=== PATIENT | female | born 2000 | race Hispanic/Latino ===

== ENCOUNTER 2018-07-25 16:25 | Emergency (ER) | payer OTHER ==
[~2018-07-25] VITALS: Ht 160 cm; Wt 108.9 kg
[2018-07-25] MEDS ORDERED: KEFLEX500 MG PO (18:11)
== END 2018-07-25 18:20 | disposition home or self-care (01) ==
LOC: ED 16:25
DX: N39.0 Urinary tract infection, site not specified (principal)
CPT/HCPCS: 81001; 87077; 87088; 87186; 99283

== ENCOUNTER 2021-06-24 19:33 | Emergency (ER) | payer OTHER ==
[~2021-06-24] VITALS: Ht 160 cm; Wt 126.0 kg
[~2021-06-24 19:33] MED LIST: KEFLEX500 MG PO
--- OUTSIDE RECORDS SUMMARY | 2021-06-24 19:40 | XMS ---
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 E.DYon VISIT COUNT (12 MO.) 3 [facility] 1 DAVID Rivera TOTAL 4 NOTE: Visits indicate total known visits. ED/C VISIT TRACKING (12 MO.) 06/24/2021 19:34 DAVID Delatorre TYPE: Emergency COMPLAINT: - CRAMPING/5 WKS PREG 04/06/2021 08:57 [facility] Ese [place] TYPE: Emergency DIAGNOSES: - cough - Cough, unspecified - Acute pharyngitis, unspecified - Nasal congestion [facility] DIAGNOSES: - sore throat, feever - Acute pharyngitis, unspecified - Sore Throat 08/26/2020 19:36 [facility] Mary Alice [place] TYPE: Emergency DIAGNOSES: - Flank Pain - Dorsalgia, unspecified - kidney pain INPATIENT VISIT TRACKING (12 MO.) No inpatient visits to display in this time frame [email or web address]
== END 2021-06-24 22:40 | disposition home or self-care (01) ==
LOC: ED 19:33
DX: O26.891 Other specified pregnancy related conditions, first trimester (principal); R10.2 Pelvic and perineal pain; R10.9 Unspecified abdominal pain; Z3A.01 Less than 8 weeks gestation of pregnancy
CPT/HCPCS: 36415; 76801; 76817; 80053; 81001; 84702; 84703; 85025; 86900; 86901; 99284-25

== ENCOUNTER 2021-07-09 19:15 | Emergency (ER) | payer OTHER ==
[~2021-07-09] VITALS: Ht 162.6 cm; Wt 125.0 kg
--- OUTSIDE RECORDS SUMMARY | 2021-07-09 19:23 | XMS ---
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 E.Shirley VISIT COUNT (12 MO.) 3 [facility] Reyna Wheat [address] [place] [address] TOTAL 5 NOTE: Visits indicate total known visits. ED/UCC VISIT TRACKING (12 MO.) 07/09/2021 19:16 DAVID Delatorre TYPE: Emergency COMPLAINT: - 4 WKS COLD SYMPTOMS 06/24/2021 19:34 DAVID Fung [place] TYPE: Emergency COMPLAINT: - CRAMPING/5 WKS PREG DIAGNOSES: - Unspecified abdominal pain - Other specified related conditions, first trimester - Less than 8 weeks gestation of - Pelvic and perineal pain 04/06/2021 08:57 [facility] Reyna [place] TYPE: Emergency DIAGNOSES: - cough - Cough, unspecified - Acute pharyngitis, unspecified - Nasal congestion [facility]2021 [facility] DIAGNOSES: - sore throat, feever - Acute pharyngitis, unspecified - Sore Throat 08/26/2020 19:[facility] DIAGNOSES: - Flank Pain - Dorsalgia, unspecified - kidney pain INPATIENT VISIT TRACKING (12 MO.) No inpatient visits to display in this time frame [email or web address]
[2021-07-09] MEDS ORDERED: ONDANSETRON ODT4 MG PO (21:01)
== END 2021-07-09 21:45 | disposition home or self-care (01) ==
LOC: ED 19:15
DX: O98.511 Other viral diseases complicating pregnancy, first trimester (principal); O21.0 Mild hyperemesis gravidarum; Z3A.01 Less than 8 weeks gestation of pregnancy
CPT/HCPCS: 36415; 80048; 81001; 85025; 96374; 99283-25; A9270; J2405; J7030

== ENCOUNTER 2022-02-20 04:36 | Inpatient (IN) | payer OTHER ==
[~2022-02-20 04:36] MED LIST changes: +METOCLOPRAMIDE H5 MG PO; +ONDANSETRON ODT4 MG PO
--- NOTE | 2022-02-20 09:17 | NUR ---
RT COLLECTED RAPID COVID 19, RSV, AND FLU SWAB PER DR REQUEST USING IN HOUSE LAB WITH NO COMPLICATIONS AT THIS TIME.
--- NOTE | 2022-02-20 13:10 | PR ---
[facility] [address] [facility] [place], [place] [address] Signed Progress Notes IP Datetime Report Generated by CPN: 02/20/2022 13:10 PROGRESS NOTES: [id number] Impression: Normal Progression of Labor; Reassuring Heart Rate Procedures: Sterile Vag Exam Plan: Continue Present Management Informed Consent Obtain: Vaginal Delivery VITAL SIGNS: [id number] Vital Signs: Reviewed; Within Normal Limits EXAM: [id number] Dilatation: 4.0 Effacement: 90 Station: -2 Contractions: q 3-4 min MEMBRANES: [id number] Comments: Pt seen and examined. Doing well. Comfortable w/ contractions. Reviewed anticipated course of labor. Consider AROM and internal monitors w/ possible pitocin augmentation. FETUS A: [id number] FHR Baseline: 125 Variability: Moderate 6-25bpm Accelerations: 15X15 Decelerations: None FHR Category: Category I Presentation: Vertex Comments on Fetus A: No evidence of metabolic acidosis FETUS B: [id number] Signing Physician: Stacy Tenorio DO Copies: ~ *Electronically Signed* 02/20/22 4940 STACY TENORIO (MARIBEL) DO PATIENT NAME: ERNIE PEGUERO PROGRESS NOTE DATE OF : 98 PHYSICIAN: STACY TENORIO) DO RPT #: [id number] REPORT IS CONFIDENTIAL AND NOT TO BE RELEASED WITHOUT AUTHORIZATION
--- NOTE | 2022-02-20 18:01 | PR ---
[facility] [address] [place], [place] [address] Signed Progress Notes IP Datetime Report Generated by CPN: 02/20/2022 18:01 PROGRESS NOTES: [id number] Impression: Normal Progression of Labor; Reassuring Heart Rate Procedures: Artificial ROM; Intrauterine Pressure Catheter; Scalp Electrode; Sterile Vag Exam Plan: Continue Present Management Other Plans: Consider augmentation of labor Informed Consent Obtain: Vaginal Delivery VITAL SIGNS: [id number] Vital Signs: Reviewed; Within Normal Limits EXAM: [id number] Dilatation: 5.5 Effacement: 90 Station: -2 Contractions: q 3-4 min MEMBRANES: [id number] Comments: Pt seen and examined. Doing well. Comfortable w/ contractions. Discussed slow progression, adequate pelvis, and estimated weight. IUPC and FSE placed w/out difficulty. Discussed indications for augmentation if needed. All questions answered FETUS A: [id number] FHR Baseline: 125 Variability: Moderate 6-25bpm Accelerations: 15X15 Decelerations: None FHR Category: Category I Presentation: Vertex Comments on Fetus A: No evidence of metabolic acidosis FETUS B: [id number] Signing Physician: Stacy Tenorio DO Copies: ~ *Electronically Signed* 02/20/22 1804 STACY TENORIO (MARIBEL) DO PATIENT NAME: ERNIE PEGUERO PROGRESS NOTE DATE OF : 98 PHYSICIAN: STACY TENORIO (JD) DO RPT #: [id number] REPORT IS CONFIDENTIAL AND NOT TO BE RELEASED WITHOUT AUTHORIZATION
--- NOTE | 2022-02-20 20:28 | PR ---
[facility] [address] [place], [place] [address] Signed Progress Notes IP Datetime Report Generated by CPN: 02/20/2022 20:28 PROGRESS NOTES: [id number] Impression: Normal Progression of Labor; Reassuring Heart Rate Other Impressions: Slow progression of labor Procedures: Sterile Vag Exam Plan: Continue Present Management Other Plans: Consider augmentation of labor Informed Consent Obtain: Vaginal Delivery; Section Delivery; Risks, Benefits and Alternatives Discussed VITAL SIGNS: [id number] Vital Signs: Reviewed; Within Normal Limits EXAM: [id number] Dilatation: 6.0 Effacement: 90 Station: -2 Contractions: q 3-4 min MEMBRANES: [id number] Comments: Pt seen and evaluated. 6cm per RN. Discussed FHT w/ recurrent late decelerations w/ moderate variabilty and accels. Unable to start pitocin at this time. Discussed causes of decelerations and interventions. Discussed indications for if needed. Reviewed inadequate contractions and slow progression of labor. All questions answered to the best of my ability and to pt and partners satisfaction. Will continue to monitor closely. FETUS A: [id number] FHR Baseline: 125 Variability: Moderate 6-25bpm Accelerations: 15X15 Decelerations: None FHR Category: Category I Presentation: Vertex Comments on Fetus A: No evidence of metabolic acidosis FETUS B: [id number] Signing Physician: Stacy Tenorio DO *Electronically Signed* 02/20/222027 STACY TENORIO (MARIBEL) DO PATIENT NAME: ERNIE PEGUERO PROGRESS NOTE DATE OF : 98 PHYSICIAN: STACY TENORIO (JD) DO RPT #: [id number] REPORT IS CONFIDENTIAL AND NOT TO BE RELEASED WITHOUT AUTHORIZATION
--- NOTE | 2022-02-20 22:52 | PR ---
[facility] [address] [place], [place] [address] Signed Progress Notes IP Datetime Report Generated by CPN: 02/20/2022 22:52 PROGRESS NOTES: [id number] Impression: Arrest of Dilatation/Descent; Non-reassuring Heart Rate Other Impressions: Slow progression of labor Procedures: Sterile Vag Exam Plan: Deliver- Section Other Plans: Consider augmentation of labor Informed Consent Obtain: Section Delivery VITAL SIGNS: [id number] Vital Signs: Reviewed; Within Normal Limits EXAM: [id number] Dilatation: 6.0 Effacement: 90 Station: -2 Contractions: q 3-4 min MEMBRANES: [id number] Comments: Pt seen and examined. Cx unchanged and inadequate contractions noted. PT w/ recurrent late decelerations and have been unable to start pitocin. Reviewed moderate variability and accelerations are still present and we discussed options including continued expectant management, pitocin augmentation, or delivery. Recommended primary delivery, and patient and partner strongly agree with this recommendation. Reviewed risks and benefits, and procedure in detail. All questions answered. Surgical crew and Dr. Johnson (assist) notified. Ancef 3 g IV + Azithromycin 500mg IV. FETUS A: [id number] FHR Baseline: 125 Variability: Moderate 6-25bpm Accelerations: 15X15 Decelerations: None FHR Category: Category I Presentation: Vertex Comments on Fetus A: No evidence of metabolic acidosis FETUS B: [id number] Signing Physician: Stacy Tenorio DO *Electronically Signed* 02/20/22 5390 STACY TENORIO (MARIBEL) DO PATIENT NAME: ERNIE PEGUERO PROGRESS NOTE DATE OF : 98 PHYSICIAN: STACY TENORIO) DO RPT #: [id number] REPORT IS CONFIDENTIAL AND NOT TO BE RELEASED WITHOUT AUTHORIZATION
--- NOTE | 2022-02-21 00:45 | NUR ---
02/21/22 0045 Sheets,Mónica 0021 PT ARRIVED TO PACU ON RA, PT DENIES CONCERNS AND 4/10 TOLERABLE PAIN. SCANT AMOUNT OF BLEEDING NOTED WITH FUNDAL CHECKS. 0043 BABY TO CHEST WITH FBC RN. HOB INCREASED.
--- NOTE | 2022-02-21 12:47 | PR ---
[facility] [address] [facility] [place], [place] [address] Signed PP Progress Notes Datetime Report Generated by CPN: 02/21/2022 12:47 SUBJECTIVE: [id number] Pain: Within Normal Limits Nausea/Vomiting: Denies Flatus: Yes Bowel Movement: No Vital Signs: [id number] Vital Signs: Reviewed; Within Normal Limits Cardiovascular: Normal Respiratory: Normal Abdomen/Uterus: Normal Lochia: Normal Vulva/Perineum: Not Done Breasts: Not Done CVA Tenderness: Normal Extremities: Normal Incision: Normal Exam Comments: Fundus firm U-2 nontender. Incision clean dry intact w/ taina in place IMPRESSION/PLAN/PROCEDURES: [id number] Impression: Normal Progression Plan: Continue Present Management Progress Notes: Pt seen and examined. Doing well. Ambulating, voiding, and tolerating full diet. Pain and lochia minimal. well. No fever/chill or other concerns. Anticpate dc home tomorrow. Hgb 14.0 Signing Physician: Stacy Tenorio DO Copies: ~ *Electronically Signed* 02/21/22 1247 STACY TENORIO (MARIBEL) DO PATIENT NAME: ERNIE PEGUERO PROGRESS NOTE DATE OF : 98 PHYSICIAN: STACY TENORIO) DO RPT #: [id number] REPORT IS CONFIDENTIAL AND NOT TO BE RELEASED WITHOUT AUTHORIZATION
--- NOTE | 2022-02-22 11:37 | PR ---
[facility] [address] [place], [place] [address] Signed PP Progress Notes Datetime Report Generated by CPN: 02/22/2022 11:37 SUBJECTIVE: [id number] Pain: Within Normal Limits Nausea/Vomiting: Denies Flatus: Yes Bowel Movement: Yes Vital Signs: [id number] Vital Signs: Reviewed; Within Normal Limits Cardiovascular: Normal Respiratory: Normal Abdomen/Uterus: Normal Lochia: Normal Vulva/Perineum: Not Done Breasts: Not Done CVA Tenderness: Normal Extremities: Normal Incision: Normal Progress: Normal Exam Comments: Fundus firm U-2 nontender. Incision well healing w/ taina in place IMPRESSION/PLAN/PROCEDURES: [id number] Impression: Normal Progression Plan: Discharge Procedures: None Progress Notes: Pt seen and examined. Doing well. Ambulating, voiding, and tolerating full diet. Pain and lochia minimal. well. No fevers/chills or other concerns. Strongly desires d/c home. Reviewed pp progress, discharge instructions, and d/c medications in detail. All questions answered. Signing Physician: Stacy Tenorio DO Copies: ~ *Electronically Signed* 02/22/22 5385 STACY TENORIO (MARIBEL) DO PATIENT NAME: ERNIE PEGUERO PROGRESS NOTE DATE OF : 98 PHYSICIAN: STACY TENORIO (JD) DO RPT #: [id number] REPORT IS CONFIDENTIAL AND NOT TO BE RELEASED WITHOUT AUTHORIZATION
--- NOTE | 2022-02-23 02:54 | OR ---
[address] [address] Signed DATE OF OPERATION: 02/20/2022 SURGEON: Stacy Tenorio DO PREOPERATIVE DIAGNOSES: 1. Intrauterine at 39 weeks and 5 days gestation. 2. Failure to progress. 3. Nonreassuring heart tracing. 4. Persistent occiput posterior position. 5. Obesity in . 6. GBS positive. POSTOPERATIVE DIAGNOSES: 1. Intrauterine at 39 weeks and 5 days gestation. 2. Failure to progress. 3. Nonreassuring heart tracing. 4. Persistent occiput posterior position. 5. Obesity in . 6. GBS positive. PROCEDURES PERFORMED: Primary low transverse delivery. ANESTHESIA: Epidural. REFRIGERATING OILER: Parul oRper DO ESTIMATED BLOOD LOSS: 500 mL. DRAINS: Mann to gravity. COMPLICATIONS: None. FINDINGS: Delivery of viable male weighing 6 pounds 14 ounces in the LOP position with Electronically Signed By: STACY TENORIO DO (JD) 02/23/22 0254 PATIENT NAME: ERNIE SANDERS OPERATIVE REPORT DATE OF : 98 REPORT #: [id number] PHYSICIAN: STACY TENORIO DO (JD) PCP: CASSIE CEDILLO MD REPORT IS CONFIDENTIAL AND NOT TO BE RELEASED WITHOUT AUTHORIZATION [address] [address] Signed asynclitism and caput with Apgars of 8 and 9 at 1 and 5 minutes respectively. Normal uterus, tubes, and ovaries. INDICATIONS: Ms. Sanders is a very pleasant 21-year-old, G1, P0, with intrauterine at 39 and 5 weeks gestation, who presented to Labor and delivery with spontaneous labor. 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 The patient was admitted and no vulvar lesions were noted. Epidural was kindly placed and the patient made slow progression. After many hours, very slow cervical change was noted and then no additional cervical change was appreciated. Recurrent late decelerations occurred and unable to start Pitocin augmentation. Recommended primary low transverse delivery and the patient and partner agree. Consents were signed and all questions were answered. TECHNIQUE: The patient was taken to the operating room, where time-out was performed to confirm correct patient, correct procedure. Epidural was bolused and found to be adequate. The patient was prepped and draped in the supine position with a bump under the right hip. Mann catheter was inserted and the patient received Ancef 3 g and azithromycin 500 mg IV preoperatively. Once epidural was noted to be adequate, a Pfannenstiel skin incision was made approximately 2-3 cm above the pubic symphysis and carried down to the fascia. The fascia was nicked in the midline and fascial incision was extended bilaterally using curved Hunter scissors. Fascia was grasped with Colleen's, elevated, and the underlying rectus muscle was dissected off bluntly and sharply. Rectus was divided in the midline and peritoneum were entered bluntly. Peritoneal incision was extended cephalad and caudad using sharp and blunt dissection. An Fabián self retractor was placed and the lower uterine segment identified. Hysterotomy was performed using a surgical scalpel and clear fluid was noted. Hysterotomy was extended bilaterally using blunt dissection. The surgeon's hand was placed in the uterine cavity. The head elevated and noted to be in the LOP position with asynclitism and significant caput. The vertex was then delivered with the assistance of fundal pressure. No nuchal cord was identified. The remainder of the delivered easily and baby was vigorous and cried upon delivery. Cord was doubly clamped and cut. The handed to the waiting pediatric team for further care. Cord blood was obtained for routine analysis. The placenta was expressed, intact with a centrally inserted three-vessel cord. Bleeding was scant. Pitocin was given per protocol. The uterine cavity was cleared of any remaining products of conception or clot and then hysterotomy was closed in two layers of 0 Monocryl. The 1st being a running locked layer and the 2nd being a running imbricating suture in a vertical manner. The pelvis was irrigated and found to be hemostatic after very judicious use of Bovie electrocautery. Normal tubes and ovaries were appreciated. The Fabián self retractor was removed and peritoneum was reapproximated using 2-0 Vicryl in a running nonlocked manner. Rectus was irrigated, made hemostatic with Bovie Electronically Signed By: STACY MCGOWAN) DO VERNELL 02/23/22 0254 PATIENT NAME: ERNIE SANDERS OPERATIVE REPORT DATE OF : 98 REPORT #: [id number] PHYSICIAN: STACY TENORIO) PCP: CASSIE CEDILLO MD REPORT IS CONFIDENTIAL AND NOT TO BE RELEASED WITHOUT AUTHORIZATION [facility] [address] [place] [id number] Signed electrocautery and rectus was loosely plicated in the midline using 3 interrupted sutures of 0 Vicryl. Once rectus was assured to be hemostatic, the fascia was then reapproximated using 0 Vicryl in a running nonlocked manner. Subcu was irrigated and made hemostatic with judicious use of Bovie electrocautery. Subcu was reapproximated using 3-0 Vicryl in a running nonlocked manner. Skin was reapproximated using surgical taina. The uterus was Cred'ed for scant amount of blood and the patient was taken to PACU in good and stable condition. Sponge, needle, instrument count were correct x2 at the end of the procedure. Dr. Roper was present and assisted in all portions of the procedure. Stacy Tenorio DO JDW/MODL /[id number] Copies: ~ Electronically Signed By: STACY MCGOWAN) DO VERNELL 02/23/22 0254 PATIENT NAME: ERNIE SANDERS OPERATIVE REPORT DATE OF : 98 REPORT #: [id number] PHYSICIAN: STACY TENORIO DO (JD) PCP: CASSIE CEDILLO MD REPORT IS CONFIDENTIAL AND NOT TO BE RELEASED WITHOUT AUTHORIZATION
== END 2022-02-22 12:45 | disposition home or self-care (01) | DRG 788 ==
LOC: FBCO 04:36 → FBC 06:15
PROVIDERS: ADMIT Obstetrics & Gynecology; ATTEND Obstetrics & Gynecology
PROC: 10H07YZ Insertion of Other Device into Products of Conception, Via Natural or Artificial Opening (ICD-10-PCS; 2022-02-20)
PROC: 10D00Z1 Extraction of Products of Conception, Low, Open Approach (ICD-10-PCS; principal; 2022-02-20 23:10)
DX: O76 Abnormality in fetal heart rate and rhythm complicating labor and delivery (principal); O99.214 Obesity complicating childbirth; O99.824 Streptococcus B carrier state complicating childbirth; Z3A.39 39 weeks gestation of pregnancy; Z37.0 Single live birth; Z67.10 Type A blood, Rh positive; Z20.822 Contact with and (suspected) exposure to COVID-19; O62.1 Secondary uterine inertia; L40.9 Psoriasis, unspecified
CPT/HCPCS: 36415; 59025; 85027; 86850; 86900; 86901; 87502; A9270; C9803; G0463; J0456; J0690; J1650; J1885; J2274; J2405; J2540; J2590; J2795; J3010; J7121; U0003

== ENCOUNTER 2022-04-23 13:00 | Emergency (ER) | payer OTHER ==
[~2022-04-23] VITALS: Ht 162.6 cm; Wt 115.9 kg
== END 2022-04-23 14:33 | disposition home or self-care (01) ==
LOC: ED 13:00
DX: J02.9 Acute pharyngitis, unspecified (principal); Z20.822 Contact with and (suspected) exposure to COVID-19
CPT/HCPCS: 87502; 87880; 99283; A9270; C9803; U0003

== ENCOUNTER 2024-11-14 04:58 | Inpatient (IN) | payer OTHER ==
[~2024-11-14] VITALS: Ht 162.6 cm; Wt 108.0 kg
[2024-11-14] MEDS ORDERED: LACTATED RINGER'S 1,000 ML IV PRN (05:15)
[2024-11-14] MEDS ORDERED: SOD+POT BICARB/CITRIC ACID 2 EA TABLET.EFF PO ONE (05:15)
[2024-11-14] MEDS ORDERED: LIDOCAINE 2% VISCOUS 6 ML SYR TOP ONE ×2 (05:15→08:45)
[2024-11-14 05:48] VITALS: BP 106/55
[2024-11-14 05:49] LABS: MCH 28.5 PG (25.6-32.2); MCHC 34.4 g/dL (32.2-35.5); MCV 82.8 fL (79.4-94.8); RBC 5.05 M/uL (3.93-5.22)
[2024-11-14 06:07] LABS: AMPHETAMINES, URINE NEGATIVE (NEGATIVE); BARBITURATES, URINE NEGATIVE (NEGATIVE); BENZODIAZEPINE, URINE NEGATIVE (NEGATIVE); CANNABINOID, URINE NEGATIVE (NEGATIVE); COCAINE, URINE NEGATIVE (NEGATIVE); ECSTASY, URINE NEGATIVE (NEGATIVE); FENTANYL, URINE NEGATIVE (NEGATIVE); METHADONE, URINE NEGATIVE (NEGATIVE); OPIATES, URINE NEGATIVE (NEGATIVE); OXYCODONE, URINE NEGATIVE (NEGATIVE); PHENCYCLIDINE, URINE NEGATIVE (NEGATIVE)
[2024-11-14 06:22] LABS: ABO A; ANTIBODY SCREEN NEGATIVE; RH POSITIVE
[2024-11-14] MEDS ORDERED: CEFAZOLIN SODIUM 2 GM/20 ML SYR IV SCH (07:00)
[2024-11-14] MEDS ORDERED: CEFAZOLIN SODIUM 2 GM in SODIUM CHLORIDE 0.9% 100 ML IV SCH (07:00)
[2024-11-14] MEDS ORDERED: METOCLOPRAMIDE HCL 10 MG/2 ML SDV IV PRN (08:45)
[2024-11-14] MEDS ORDERED: HYDROCODONE/ACETA 5/325 TAB PO PRN (08:45)
[2024-11-14] MEDS ORDERED: PROCHLORPERAZINE EDISYLATE 10 MG/2 ML VIAL IV PRN (08:45)
[2024-11-14] MEDS ORDERED: OXYCODONE HCL 5 MG TAB PO PRN (08:45)
[2024-11-14] MEDS ORDERED: PROMETHAZINE HCL 25 MG SUPP PR PRN (08:45)
[2024-11-14] MEDS ORDERED: OXYTOCIN/0.9 % SODIUM CHLORIDE 500 ML IV SCH (08:45)
[2024-11-14] MEDS ORDERED: PROMETHAZINE HCL 25 MG TAB PO PRN (08:45)
[2024-11-14] MEDS ORDERED: LACTATED RINGER'S 1,000 ML IV SCH (08:45)
[2024-11-14] MEDS ORDERED: fentaNYL citrate 100 MCG/2 ML VIAL ONE (08:54)
[2024-11-14] MEDS ORDERED: KETOROLAC TROMETHAMINE 30 MG/ML VIAL ONE (08:58)
[2024-11-14] MEDS ORDERED: SENNOSIDES/DOCUSATE 1 EA TAB PO SCH (09:00)
[2024-11-14] MEDS ORDERED: fentaNYL citrate 50 MCG/ML SDV IV PRN (09:15)
[2024-11-14] MEDS ORDERED: IBLOOD GLUCOSE TEST STRIP 1 EA TEST VI PRN (09:15)
[2024-11-14] MEDS ORDERED: HYDROmorphone HCL 1 MG/ML SYR IV PRN (09:15)
[2024-11-14] MEDS ORDERED: NALOXONE HCL 0.4 MG SYR IV PRN (09:15)
[2024-11-14] MEDS ORDERED: KETOROLAC TROMETHAMINE 30 MG/ML VIAL IV PRN (09:15)
[2024-11-14] MEDS ORDERED: MEPERIDINE HCL 25 MG/1 ML VIAL IV PRN (09:15)
--- NOTE | 2024-11-14 10:47 | NUR ---
11/14/24 1047 Sheets,Mónica 2332 PT ARRIVED TO ROOM 104 WITH IN ROOM WITH BABY. PT REPORTS PAIN 9/10 AND GRIMACING OFF AND ON. PT REPORTS NAUSEA, THAT "IS PRETTY BAD." DIRECTOR LIFE AWARE. PLAN OF CARE DISCUSSED. PT REPORTS NUMBNESS IN LEGS AND SPINAL EDUCATION GIVEN. 0913 MEDICATION GIVEN PER EMAR, PT REPORTS PAIN IS GETTING BETTER BUT INCREASES WITH FUNDAL CHECKS. FBC DOING FUNDAL CHECKS WITH THIS RN, SMALL AMOUNT OF DRAINAGE NOTED. 0930 HEART RATE BETWEEN 44 AND MID 50S, DIRECTOR LIFE AWARE. REPORT TO FBC RN AND BED PLUGGED IN. PT REPORTS 5/10 AND TOLERABLE WHEN NOT DOING FUNDAL CHECK. ALL QUESTIONS ANSWERED AND HOB INCREASED AND PT SIPPING WATER. PT REPORTS NAUSEA IS BETTER.
[2024-11-14 10:58] VITALS: BP 113/65
[2024-11-14] MEDS ORDERED: SIMETHICONE 80 MG CHEW PO SCH (11:00)
[2024-11-14] MEDS ORDERED: KETOROLAC TROMETHAMINE 30 MG/ML VIAL IV SCH (14:00)
[2024-11-15] MEDS ORDERED: LACTATED RINGER'S 1,000 ML IV SCH (05:00)
[2024-11-15 05:36] LABS: MCH 28.5 PG (25.6-32.2); MCHC 33.5 g/dL (32.2-35.5); MCV 85.0 fL (79.4-94.8); RBC 4.0 M/uL (3.93-5.22)
--- NOTE | 2024-11-15 09:18 | PR ---
[facility] [address] [facility] [place], [place] [address] Signed PP Progress Notes Datetime Report Generated by CPN: 11/15/2024 09:18 SUBJECTIVE: [id number] Pain: Within Normal Limits Nausea/Vomiting: Denies Flatus: Yes Vital Signs: [id number] Vital Signs: Reviewed; Within Normal Limits EXAM: Ongoing EXAM: Ongoing Cardiovascular: Normal Respiratory: Not Done Abdomen/Uterus: Normal Lochia: Normal Vulva/Perineum: Normal Breasts: Normal CVA Tenderness: Not Done Extremities: Normal Incision: Normal Progress: Not Applicable IMPRESSION/PLAN/PROCEDURES: [id number] Impression: Normal Progression Plan: Continue Present Management Progress Notes: Pain and bleeding well controlled. Ambulating today. Not . Will D/C IV Signing Physician: Tara Freeman MD Copies: ~ *Electronically Signed* 11/15/24917 TARA FREEMAN MD PATIENT NAME: ERNIE PEGUERO PROGRESS NOTE DATE OF : 98 PHYSICIAN: TARA FREEMAN MD RPT #: [id number] REPORT IS CONFIDENTIAL AND NOT TO BE RELEASED WITHOUT AUTHORIZATION
[2024-11-15] MEDS ORDERED: IBUPROFEN 600 MG TAB PO SCH (14:00)
--- NOTE | 2024-11-16 09:20 | PR ---
[facility] [address] [facility] [place] [address] Signed PP Progress Notes Datetime Report Generated by CPN: 11/16/2024 09:20 Pain: Within Normal Limits Nausea/Vomiting: Denies Flatus: Yes Vital Signs: Reviewed; Within Normal Limits Cardiovascular: Normal Respiratory: Normal Abdomen/Uterus: Normal Lochia: Normal Vulva/Perineum: Not Done Breasts: Normal CVA Tenderness: Not Done Extremities: Normal Incision: Normal Progress: Not Applicable Impression: Normal Progression Plan: Discharge Progress Notes: Recovering well, no concerns. Ambulating. Pain and lochia WNL. Discussed post op care. D/C home today. Signing Physician: Tara Freeman MD Copies: ~ *Electronically Signed* 11/16/24919 TARA FREEMAN MD PATIENT NAME: ERNIE PEGUERO PROGRESS NOTE DATE OF : 98 PHYSICIAN: TARA FREEMAN MD RPT #: [id number] REPORT IS CONFIDENTIAL AND NOT TO BE RELEASED WITHOUT AUTHORIZATION
== END 2024-11-16 10:48 | disposition home or self-care (01) | DRG 788 ==
LOC: FBC 04:58
PROVIDERS: ADMIT Obstetrics & Gynecology; ATTEND Obstetrics & Gynecology
PROC: 10D00Z1 Extraction of Products of Conception, Low, Open Approach (ICD-10-PCS; principal; 2024-11-14 07:30)
DX: O34.211 Maternal care for low transverse scar from previous cesarean delivery (principal); Z3A.39 39 weeks gestation of pregnancy; Z37.0 Single live birth; Z98.84 Bariatric surgery status; E66.9 Obesity, unspecified; Z90.49 Acquired absence of other specified parts of digestive tract; Z79.899 Other long term (current) drug therapy
CPT/HCPCS: 01961; 36415; 76942; 80307; 85027; 86850; 86900; 86901; A9270; J0688; J1885; J3010; J7121